=== PATIENT | female | born 1975 | race Caucasian/White ===

== ENCOUNTER 2017-01-29 20:55 | Emergency (ER) | payer MEDICAID ==
[~2017-01-29] VITALS: Ht 162.6 cm; Wt 66.0 kg
[2017-01-29] MEDS ORDERED: SODIUM CHLORIDE FLUSH 10ML SYR IVF ONE (23:30)
[2017-01-29] MEDS ORDERED: LORazepam 2 MG/ML, 1ML IVPush ONE (23:30)
[2017-01-29 23:51] LABS: HEMOGLOBIN 16.4 g/dL (11.7-16.4)
[2017-01-29 23:58] LABS: BLOOD UREA NITROGEN 21 mg/dL (7-18)
[2017-01-30 00:04] LABS: ASPARTATE AMINO TRANSFERASE 19 U/L (15-37)
[2017-01-30 00:05] LABS: ACETAMINOPHEN < 2 mcg/mL (10-30)
[2017-01-30] MEDS ORDERED: LORazepam 2 MG/ML, 1ML ONE (00:09)
[2017-01-30] MEDS ORDERED: LISI-167 PO (00:23)
[2017-01-30 00:34] LABS: DAU SCREEN DISCLAIMER
[2017-01-30 01:04] LABS: PATH.CAST-FLAG NOT PRESENT; SPERM-FLAG NOT PRESENT; SRC-FLAG NOT PRESENT; XTAL-FLAG NOT PRESENT; YLC-FLAG NOT PRESENT
[2017-01-30] MEDS ORDERED: LORazepam 2 MG/ML, 1ML IVPush ONE (02:00)
[2017-01-30] MEDS ORDERED: CIPROFLOXACIN 500 MG TABLET ONE (02:23)
[2017-01-30] MEDS ORDERED: LORazepam 1MG TABLET ONE (02:23)
[2017-01-30] MEDS ORDERED: CIPROFLOXACIN 500 MG TABLET PO ONE (02:30)
[2017-01-30 03:00] VITALS: BP 126/78
== END 2017-01-30 02:38 | disposition home or self-care (01) ==
LOC: ED 23:08
DX: I10 Essential (primary) hypertension (principal); F15.10 Other stimulant abuse, uncomplicated; N30.00 Acute cystitis without hematuria; F17.210 Nicotine dependence, cigarettes, uncomplicated
CPT/HCPCS: 36415; 80053; 80307; 80329; 81003; 84703; 85025; 87086; 93005; 96374; 96376; 99285; J2060; G0480